=== PATIENT | female | born 1990 | race Caucasian/White ===

== ENCOUNTER 2019-11-18 17:28 | Outpatient (CLI) | payer OTHER, SELFPAY ==
--- NOTE | ~2019-11-18 | XR_ITS ---
EXAMINATION: XR ribs RT 2V w CXR 2V EXAM DATE: 11/18/2019 17:56 INDICATION: Right lateral, posterior rib pain 3-4 weeks. TECHNIQUE: Frontal projection of the upper right ribs, frontal projection of the lower right ribs, ob lique projection of the right ribs, frontal and lateral chest x-ray(s) for interpretation. There is no prior study for comparison. FINDINGS: There are no displaced acute right rib fractures identified. There is no soft tissue abno rmality seen. The lungs are clear. There are no pleural effusions. The cardiomediastinal silhouette is within normal limits. There is no pneumothorax suspected. The bones and soft tissues are unrema rkable. IMPRESSION: Unremarkable chest x-ray, right rib exam. Reviewed, dictated and finalized at location A.
[2019-11-18 17:44] LABS: Basophils Absolute Auto 0.03 K/mm3 (0.00-0.10); Basophils Percent Auto 0.3 % (0.0-1.0); Eosinophils Absolute Auto 0.01 K/mm3 (0.02-0.50); Eosinophils Percent Auto 0.1 % (1.0-6.0); Hematocrit 37.8 % (35.0-49.0); Hemoglobin 12.7 g/dL (12.0-15.0); Immature Granulocyte Absolute 0.03 K/mm3 (0.00-0.00); Immature Granulocyte Percent A 0.3 % (0.0-0.0); Lymphocytes Absolute Auto 1.83 K/mm3 (1.10-4.50); Lymphocytes Percent Auto 19.5 % (18.0-42.0); Mean Corpuscular HGB Conc 33.6 g/dL (32.0-36.0); Mean Corpuscular Hemoglobin 32.6 pg (27.0-31.0); Mean Corpuscular Volume 96.9 fL (78.0-102.0); Mean Platelet Volume 8.8 fl (9.2-11.8); Monocytes Absolute Auto 0.47 K/mm3 (0.10-0.90); Neutrophils Percent Auto 74.8 % (50.0-70.0); Platelet Count Result 351 K/mm3 (150-420); Red Cell Distribution Width 12.4 % (11.6-14.4); White Blood Count 9.4 K/mm3 (4.8-10.8)
== END 2019-11-18 17:29 | disposition home or self-care (01) ==
LOC: CHSLAB 17:30
PROVIDERS: PCP Family Medicine; Visit Provider Family Medicine
DX: K92.1 Melena (principal); R07.89 Other chest pain
CPT/HCPCS: 36415; 71045; 71101; 85025

== ENCOUNTER 2020-08-04 16:09 | Outpatient (CLI) | payer OTHER, SELFPAY ==
[2020-08-04 16:35] LABS: Basophils Absolute Auto 0.04 K/mm3 (0.00-0.10); Basophils Percent Auto 0.4 % (0.0-1.0); Eosinophils Absolute Auto 0.08 K/mm3 (0.02-0.50); Eosinophils Percent Auto 0.8 % (1.0-6.0); Hematocrit 39.8 % (35.0-49.0); Hemoglobin 13.2 g/dL (12.0-15.0); Immature Granulocyte Absolute 0.05 K/mm3 (0.00-0.00); Immature Granulocyte Percent A 0.5 % (0.0-0.0); Lymphocytes Absolute Auto 1.61 K/mm3 (1.10-4.50); Lymphocytes Percent Auto 16.1 % (18.0-42.0); Mean Corpuscular HGB Conc 33.2 g/dL (32.0-36.0); Mean Corpuscular Hemoglobin 32.1 pg (27.0-31.0); Mean Corpuscular Volume 96.8 fL (78.0-102.0); Mean Platelet Volume 8.5 fl (9.2-11.8); Neutrophils Absolute Auto 7.6 K/mm3 (1.7-7.2); Neutrophils Percent Auto 76.2 % (50.0-70.0); Platelet Count Result 402 K/mm3 (150-420); Red Blood Count 4.11 M/mm3 (4.20-5.40); Red Cell Distribution Width 12.3 % (11.6-14.4)
[2020-08-04 16:38] LABS: Add Urine Microscopic? NO; Appearance Urine Clear (Clear); Bilirubin Urine Negative (Negative); Blood Urine Negative (Negative); Color Urine Yellow (Yellow); Glucose Urine UA Negative (Negative); Ketones Urine Negative (Negative); Leukocyte Esterase Ur Negative (Negative); Nitrate Urine Negative (Negative); Protein Urine Negative (Negative); Specific Grav Ur >= 1.030 (1.010-1.020); Urobilinogen Urine 0.2 mg/dL (0.2-1.0)
[2020-08-04 17:26] LABS: SPREG INTERNAL CONTROL Positive; Serum Qual hCG Negative
[2020-08-04 17:42] LABS: Alanine Aminotransferase 14 U/L (14-59); Albumin Level 4.3 g/dL (3.4-5.0); Alkaline Phosphatase 82 U/L (46-116); Amylase 95 U/L (25-115); Anion Gap 13 mmol/L (8-16); Aspartate Amino Transferase 11 U/L (15-37); Bilirubin,Total 0.3 mg/dL (0.00-1.00); Blood Urea Nitrogen 18 mg/dL (7-18); Calcium 9.3 mg/dL (8.5-10.1); Carbon Dioxide 23 mmol/L (21-32); Chloride 101 mmol/L (98-108); Estimated Glomerular Filt Rate > 60; Glucose 97 mg/dL (70-99); Lipase 195 U/L (73-393); Osmolality Calculated 285 mOsm/kg (285-295); Sodium 137 mmol/L (136-145); Thyroid Stimulating Hormone 0.72 uIU/mL (0.36-3.74); Total Protein 7.8 g/dL (6.4-8.2)
[2020-08-08 10:20] LABS: DHEA-Sulfate 205 mcg/dL (23-266)
[2020-08-10 11:06] LABS: FSH 2.9 mIU/mL (***); LH 2.2 mIU/mL (***); Prolactin 8.4 ng/mL (***)
[2020-08-10 17:02] LABS: Estradiol, Ultrasensitive 153 pg/mL
== END 2020-08-04 16:10 | disposition home or self-care (01) ==
LOC: CHSLAB 16:12
PROVIDERS: PCP Family Medicine; Visit Provider Family Medicine
DX: R10.11 Right upper quadrant pain (principal); N91.5 Oligomenorrhea, unspecified; N64.4 Mastodynia
CPT/HCPCS: 36415; 80053; 81003; 82150; 82627; 82670; 83001; 83002; 83690; 84146; 84443; 84703; 85025

== ENCOUNTER 2020-08-10 12:43 | Outpatient (CLI) | payer OTHER, SELFPAY ==
--- NOTE | ~2020-08-10 | US_ITS ---
US abdomen complete DATE: 08/10/2020 13:07 INDICATION: Right upper quadrant abdominal pain TECHNIQUE: Real-time imaging and Doppler analysis of the abdomen COMPARISON: None FINDINGS: No hepatic or pancreatic space-occupying mass lesion is evident. Normal hepatopedal portal venous flow direction. There are multiple shadowing filling defects of the gallbladder consistent with cholelithiasis. No ga llbladder wall thickening is noted. No pericholecystic fluid collection. Negative sonographic Luevano' s sign. The common bile duct measures 4.2 mm, within normal limits. The right kidney measures approximately 10 cm length. The left kidney measures approximately 10.7 cm length. No hydronephrosis of either kidney. Normal caliber of the abdominal aorta. The inferior vena cava is unremarkable. IMPRESSION: Cholelithiasis Reviewed, dictated and finalized at Location A. Reviewed, dictated and finalized at location B. 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
== END 2020-08-10 12:44 | disposition home or self-care (01) ==
LOC: CHSIMG 12:45
PROVIDERS: PCP Family Medicine; Visit Provider Family Medicine
DX: R10.11 Right upper quadrant pain (principal)
CPT/HCPCS: 76700

== ENCOUNTER 2020-08-17 08:06 | Outpatient (CLI) | payer OTHER, SELFPAY ==
--- NOTE | ~2020-08-17 | NM_ITS ---
EXAMINATION: NM hepatobiliary w pharm DATE: 08/17/2020 10:15 INDICATION: Cholelithiasis. Right upper quadrant abdominal pain. Nausea. COMPARISON: Ultrasound 08/10/2020 TECHNIQUE: 6.0 mCi Tc-99m mebrofenin (Choletec) was administered intravenously. Scintigraphic images of the abdomen were obtained for one hour. Then, 1.2 mcg sincalide (Kinevac) IV was administered, an d imaging was continued for 30 minutes. FINDINGS: There is normal clearance of radiotracer from the blood pool. There is homogeneous tracer u ptake by the liver. Activity progresses to the bowel and gallbladder. Gallbladder ejection fraction (GBEF) was 77%. Note that most patients with gallbladder dysfunction have GBEF < 35%, which overlaps with the broad normal range of 10-90%. IMPRESSION: 1. Normal hepatobiliary scintigraphy. Reviewed, dictated and finalized at location A. 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
== END 2020-08-17 08:07 | disposition home or self-care (01) ==
LOC: CHSIMG 08:08
PROVIDERS: PCP Family Medicine; Visit Provider Family Medicine
DX: K80.80 Other cholelithiasis without obstruction (principal)
CPT/HCPCS: 78227; A9537; J2805

== ENCOUNTER 2020-08-30 11:01 | Outpatient (CLI) | payer OTHER, SELFPAY ==
--- NOTE | ~2020-08-30 | XR_ITS ---
EXAMINATION: XR chest 2V EXAM DATE: 08/30/2020 11:20 INDICATION: Chest pain mid sternum to right lower x 1 month, hx asthma. TECHNIQUE: Frontal and lateral projections of the chest obtained and reviewed. Comparison is made to prior examination from 11/18/2019. FINDINGS: The lungs are clear. There are no pleural effusions. The cardiomediastinal silhouette is within normal limits. There is no pneumothorax suspected. The bones and soft tissues are unremarkab le. IMPRESSION: No acute cardiopulmonary findings. Reviewed, dictated and finalized at location A. GER LABOR RELATIONS
== END 2020-08-30 11:02 | disposition home or self-care (01) ==
LOC: CHSIMG 11:03
PROVIDERS: PCP Family Medicine; Visit Provider Family Medicine
DX: R07.89 Other chest pain (principal)
CPT/HCPCS: 71046

== ENCOUNTER 2020-09-17 08:06 | Outpatient (CLI) | payer OTHER, SELFPAY ==
--- NOTE | ~2020-09-17 | CT_ITS ---
EXAMINATION: CT abdomen pelvis w con DATE: 09/17/2020 09:08 INDICATION: Right upper quadrant abdominal pain TECHNIQUE: Computed tomography (CT) of the abdomen and pelvis was performed with 100 cc Omnipaque 350 intravenous contrast. The dose-length product was 311.68 mGy-cm. Automated exposure control and iter ative reconstruction technique were employed. COMPARISON: Nuclear hepatobiliary scan dated 08/17/2020 and ultrasound dated 08/10/2020 FINDINGS: Lung bases are unremarkable. Heart size is normal. No significant pleural or pericardial ef fusion. There is mild atherosclerosis without aneurysm. No lymphadenopathy. Fatty infiltration of the liver. Gallbladder is present. No radiopaque stones. The spleen, pancreas, adrenal glands and kidneys are unremarkable. Nonobstructive bowel gas pattern. No biliary dilatation. No free air or free fluid. Normal appendix. No abnormal pelvic masses or fluid collections. No acute osseous abnormality. IMPRESSION: 1. No acute abdominal abnormality. No findings to account for patient's symptoms. Reviewed, dictated and finalized at location B. 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 No acute abdominal abnormality. No findings to account for patient's symptom s.
== END 2020-09-17 08:07 | disposition home or self-care (01) ==
LOC: CHSIMG 08:09
PROVIDERS: PCP Family Medicine; Visit Provider Family Medicine
DX: R10.11 Right upper quadrant pain (principal)
CPT/HCPCS: 74177; Q9967

== ENCOUNTER 2021-05-08 16:28 | Emergency (ER) | payer OTHER, SELFPAY ==
--- NOTE | 2021-05-08 16:57 | ED.SKABFB ---
HPI - Skin/Abscess/Foreign Bdy General Chief complaint: Skin/Abscess/Foreign Body Stated complaint: spider bit Source: patient Mode of arrival: ambulatory Limitations: no limitations History of Present Illness HPI narrative: Pt presents with wound that started yesterday. SHe isnt sure what happened, but she was worried about a spider bite. No fevers, no unusual nausea, today fluid filled blister is present. complaint: abscess/boil Onset (ago): day(s) (1) Pain Consistency: now resolved (no painful) Relieving factors: none Exacerbating factors: none Associated symptoms: denies other symptoms Treatments prior to arrival: none Related Data Home Medications Medication Instructions Recorded Confirmed buspirone 5 mg PO DAILY 05/08/21 05/08/21 dextroamphetamine-amphetamine 20 mg PO DAILY 05/08/21 05/08/21 escitalopram oxalate 5 mg PO DAILY 05/08/21 05/08/21 omeprazole 20 mg PO DAILY 05/08/21 05/08/21 Allergies Allergy/AdvReac Type Severity Reaction Status Date / Time No Known Allergies Allergy Unverified 05/08/21 17:03 Review of Systems Review of Systems: All systems reviewed & are unremarkable except as noted in HPI and below PMFSH Past Medical History Medical History (Updated 05/08/21 @ 17:03 by Terra Conteh MD) Arthritis Asthma HTN (hypertension) SVT (supraventricular tachycardia) Surgical History Surgical History (Updated 05/08/21 @ 17:00 by Terra Conteh MD) H/O laparoscopy History of dilation and curettage Social History Social History (Updated 05/08/21 @ 17:00 by Terra Conteh MD) Smoking status: Never smoker Alcohol intake: never Substance use: never Living arrangements: with family Exam Const: General: no acute distress and alert Orientation/consciousness: patient oriented x3 HENMT: Head: normal to inspection Eyes: Conjunctivae: conjunctivae normal Neck: Neck: normal visual inspection Chest: Chest palpation & inspection: normal inspection of the chest Resp: Effort & Inspection: normal respiratory effort Auscultation: clear to auscultation bilaterally Cardio: Rate: regular rate Rhythm: regular rhythm GI: Auscultation: normal bowel sounds : General: Yes no CVA tenderness Skin: General skin exam: normal color Other: small quarter size blister on right forearm, serous fluid filled. Blister popped and fluid cultured. Base of pink vital skin, no significant depth Course Vital Signs Vital signs: Vital Signs Temperature 36.7 C 05/08/21 17:00 Pulse Rate 104 H 05/08/21 17:00 Respiratory Rate 20 05/08/21 17:00 Blood Pressure 133/95 H 05/08/21 17:00 Pulse Oximetry 100 05/08/21 17:00 Temperature 36.7 C 05/08/21 17:00 Pulse Rate 104 H 05/08/21 17:00 Respiratory Rate 20 05/08/21 17:00 Blood Pressure 133/95 H 05/08/21 17:00 Pulse Oximetry 100 05/08/21 17:00 Discharge Plan Discharge Clinical Impression: Blister Patient Disposition: Home, Self-Care Condition: Stable Instructions: Antibiotic Form, Blister (ED) Prescriptions: No Action buspirone 5 mg tablet 5 mg PO DAILY RF: 0 dextroamphetamine-amphetamine 20 mg tablet 20 mg PO DAILY RF: 0 omeprazole 20 mg capsule,delayed release(DR/EC) 20 mg PO DAILY RF: 0 escitalopram oxalate 5 mg tablet 5 mg PO DAILY RF: 0 Follow-up/Referrals: Denny Ruggiero MD [Primary Care Provider] - Time of Disposition: :03
[2021-05-08 17:00] VITALS: BP 133/95; PULSE 104; RESP 20; TEMP 36.7; O2SAT 100
== END 2021-05-08 17:10 | disposition home or self-care (01) ==
PROVIDERS: Emergency Provider Emergency Medicine; PCP Family Medicine
DX: S50.821A Blister (nonthermal) of right forearm, initial encounter (principal); J45.909 Unspecified asthma, uncomplicated; I10 Essential (primary) hypertension; M19.90 Unspecified osteoarthritis, unspecified site
CPT/HCPCS: 87070; 87205; 99282; 99283

== ENCOUNTER 2021-08-11 16:42 | Outpatient (CLI) | payer OTHER, SELFPAY ==
[2021-08-11 19:12] LABS: SARS-CoV-2 Ag Negative (Negative)
== END 2021-08-11 16:43 | disposition home or self-care (01) ==
LOC: CHSLAB 16:45
PROVIDERS: PCP Family Medicine; Visit Provider Family Medicine
DX: R05.9 Cough, unspecified (principal); J02.9 Acute pharyngitis, unspecified; Z20.822 Contact with and (suspected) exposure to COVID-19
CPT/HCPCS: 87081; 87426; 87880; C9803

== ENCOUNTER 2021-08-26 10:57 | Outpatient (CLI) | payer OTHER, SELFPAY ==
[2021-08-26 11:58] LABS: SARS-CoV-2 Ag Negative (Negative)
[2021-08-27 20:23] LABS: SARS-CoV-2 RNA PCR Negative
== END 2021-08-26 10:58 | disposition home or self-care (01) ==
LOC: CHSLAB 10:58
PROVIDERS: PCP Family Medicine; Visit Provider Family Medicine
DX: R05.9 Cough, unspecified (principal); R51.9 Headache, unspecified; Z20.822 Contact with and (suspected) exposure to COVID-19
CPT/HCPCS: 87426; C9803; U0003; U0005

== ENCOUNTER 2021-09-30 09:23 | Outpatient (CLI) | payer OTHER, SELFPAY ==
--- NOTE | ~2021-09-30 | XR_ITS ---
EXAMINATION: XR chest 2V 09/30/2021 11:00 INDICATION: Shortness of breath. Covid. PROCEDURE: 2 view chest COMPARISON: Comparison to multiple prior studies sequentially, with oldest reviewed study dated 12/18. FINDINGS: The lungs are clear. The cardiomediastinal silhouette is within normal limits. There are no pleural effusions. There is no pneumothorax suspected. IMPRESSION: 1: NO ACUTE CARDIOPULMONARY DISEASE. Reviewed, dictated and finalized at location B. 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
== END 2021-09-30 09:24 | disposition home or self-care (01) ==
LOC: CHSCARD 09:24
PROVIDERS: PCP Family Medicine; Visit Provider Family Medicine
DX: R05.9 Cough, unspecified (principal); B02.9 Zoster without complications
CPT/HCPCS: 71046; 94060; 94726; 94729

== ENCOUNTER 2022-07-24 09:04 | Outpatient (CLI) | payer OTHER, SELFPAY ==
--- NOTE | ~2022-07-24 | XR_ITS ---
Cervical Spine: AP, lateral, open-mouth views Clinical History: Cervicalgia Findings: There is mild reversal normal cervical lordosis. The vertebral bodies and posterior elemen ts appear intact. The intervertebral disc spaces are well maintained. Pre-vertebral soft tissues are unremarkable. Impression: Mild reversal of the normal cervical lordosis. No other significant findings. Reviewed, dictated and finalized at location [] SCENER Impression: Mild reversal of the normal cervical lordosis. No other significant findings.
== END 2022-07-24 09:05 | disposition home or self-care (01) ==
LOC: CHSIMG 09:05
PROVIDERS: PCP Family Medicine; Visit Provider Family Medicine
DX: M54.2 Cervicalgia (principal); M53.82 Other specified dorsopathies, cervical region
CPT/HCPCS: 72040

== ENCOUNTER 2022-11-08 14:38 | Outpatient (CLI) | payer OTHER, SELFPAY ==
--- NOTE | ~2022-11-08 | XR_ITS ---
EXAMINATION: XR abdomen obstructive series DATE: 11/08/2022 15:45 INDICATION: Epigastric pain TECHNIQUE: Upright and supine views of the abdomen were obtained. COMPARISON: None. FINDINGS: No free intraperitoneal gas or evidence of bowel obstruction. The bowel gas pattern is norm al. The visualized lung bases are clear. Phleboliths are noted in the pelvis. IMPRESSION: 1. Nonobstructive bowel gas pattern. Reviewed, dictated and finalized at location L.
[2022-11-08 15:13] LABS: Basophils Absolute Auto 0.04 K/mm3 (0.00-0.10); Basophils Percent Auto 0.5 % (0.0-1.0); Eosinophils Absolute Auto 0.02 K/mm3 (0.02-0.50); Eosinophils Percent Auto 0.2 % (1.0-6.0); Hematocrit 40.3 % (35.0-49.0); Hemoglobin 13.4 g/dL (12.0-15.0); Immature Granulocyte Absolute 0.04 K/mm3 (0.00-0.00); Immature Granulocyte Percent A 0.5 % (0.0-0.0); Lymphocytes Absolute Auto 1.96 K/mm3 (1.10-4.50); Lymphocytes Percent Auto 24.4 % (18.0-42.0); Mean Corpuscular HGB Conc 33.3 g/dL (32.0-36.0); Mean Corpuscular Hemoglobin 32.1 pg (27.0-31.0); Mean Corpuscular Volume 96.6 fL (78.0-102.0); Mean Platelet Volume 8.7 fl (9.2-11.8); Monocytes Absolute Auto 0.47 K/mm3 (0.10-0.90); Monocytes Percent Auto 5.9 % (2.0-11.0); Neutrophils Absolute Auto 5.5 K/mm3 (1.7-7.2); Neutrophils Percent Auto 68.5 % (50.0-70.0); Platelet Count Result 386 K/mm3 (150-420); Red Blood Count 4.17 M/mm3 (4.20-5.40); Red Cell Distribution Width 12.6 % (11.6-14.4)
[2022-11-08 15:45] LABS: Alanine Aminotransferase 29 U/L (14-59); Albumin Level 4.4 g/dL (3.4-5.0); Alkaline Phosphatase 104 U/L (46-116); Amylase 85 U/L (25-115); Anion Gap 11 mmol/L (8-16); Aspartate Amino Transferase 20 U/L (15-37); Bilirubin,Total 0.4 mg/dL (0.00-1.00); Blood Urea Nitrogen 14 mg/dL (7-18); Calcium 9.3 mg/dL (8.5-10.1); Carbon Dioxide 27 mmol/L (21-32); Chloride 102 mmol/L (98-108); Estimated Glomerular Filt Rate > 60; Glucose 100 mg/dL (70-99); Lipase 55 U/L (16-77); Osmolality Calculated 290 mOsm/kg (285-295); Potassium 3.8 mmol/L (3.5-5.1); Sodium 140 mmol/L (136-145); Thyroid Stimulating Hormone 0.99 uIU/mL (0.36-3.74); Total Protein 7.7 g/dL (6.4-8.2)
[2022-11-08 15:50] LABS: Appearance Urine Clear (Clear); Bilirubin Urine Negative (Negative); Blood Urine 1+ (Negative); Color Urine Light Yellow (Yellow); Glucose Urine UA Negative (Negative); Ketones Urine Negative (Negative); Leukocyte Esterase Ur Negative LEU/UL (Negative); Nitrate Urine Negative (Negative); Protein Urine Negative (Negative); Urobilinogen Urine 0.2 mg/dL (0.2-1.0); pH Urine 5.5 (5.0-8.0)
[2022-11-08 15:56] LABS: Add Urine Microscopic? YES; Bacteria Urine Trace /hpf; Squamous Epithelial Cell Urine Few /hpf (Few); WBC Urine None seen /hpf (0-3)
== END 2022-11-08 14:39 | disposition home or self-care (01) ==
PROVIDERS: PCP Family Medicine; Visit Provider Family Medicine
DX: R10.84 Generalized abdominal pain (principal)
CPT/HCPCS: 36415; 74019; 80053; 81001; 82150; 83690; 84443; 85025

== ENCOUNTER 2022-11-15 09:04 | Outpatient (CLI) | payer OTHER, SELFPAY ==
--- NOTE | ~2022-11-15 | US_ITS ---
Abdominal Sonogram: Real-time sonographic imaging of the abdomen was performed. Clinical History: Abdominal pain Findings: The liver appears normal with no evidence of mass lesion or bile duct dilatation. Main por odilia vein demonstrates normal direction of flow. The spleen is normal in size without evidence of foca l lesion. The gallbladder is well distended, and contains multiple shadowing gallstones. No gallblad barbara wall thickening. The common bile duct measures 3 mm. The visualized pancreas, aorta, and IVC are unremarkable. The right kidney measures 10.4 cm in length and the left kidney measures 10.6 cm. Th ere is no hydronephrosis or renal calculus. Impression: Cholelithiasis. Reviewed, dictated and finalized at location M. Impression: Cholelithiasis.
== END 2022-11-15 09:05 | disposition home or self-care (01) ==
LOC: CHSIMG 09:06
PROVIDERS: PCP Family Medicine; Visit Provider Family Medicine
DX: R10.84 Generalized abdominal pain (principal); K80.20 Calculus of gallbladder without cholecystitis without obstruction
CPT/HCPCS: 76700

== ENCOUNTER 2023-01-30 14:44 | Outpatient (CLI) | payer OTHER, SELFPAY ==
--- NOTE | ~2023-01-30 | US_ITS ---
EXAMINATION: US pelvic complete w TV DATE: 01/30/2023 15:35 INDICATION: Abnormal uterine bleeding TECHNIQUE: Multiple transabdominal and endovaginal sonographic images of the pelvis were obtained. COMPARISON: 820 during ; CT, 09/17/2020 FINDINGS: The uterus measures 6.9 x 3.5 x 4.0 cm. The endometrial complex measures 2 mm. There are sm all, chronic, and stable hyperechoic foci adjacent to the endometrium. The myometrium is somewhat het erogeneous in appearance with multiple subtle hyperechoic foci. The right ovary measures 3.6 x 1.7 x 1.4 cm. The left ovary measures 3.0 x 1.1 x 1.1 cm. There is normal vascular flow in the ovaries. The re is no free fluid in the pelvis. IMPRESSION: 1. Heterogeneous appearance of the myometrium which could reflect adenomyosis. Reviewed, dictated and finalized at location []
== END 2023-01-30 14:45 | disposition home or self-care (01) ==
PROVIDERS: PCP Family Medicine; Visit Provider Advanced Practice Midwife
DX: N94.11 Superficial (introital) dyspareunia (principal); N93.8 Other specified abnormal uterine and vaginal bleeding
CPT/HCPCS: 76830; 76856

== ENCOUNTER 2023-03-19 11:17 | Outpatient (CLI) | payer OTHER, SELFPAY ==
--- NOTE | ~2023-03-19 | NM_ITS ---
EXAMINATION: NM hepatobiliary w pharm DATE: 03/19/2023 13:28 INDICATION: Right upper quadrant abdominal pain. COMPARISON: Ultrasound 11/15/2022 TECHNIQUE: 5.16 mCi Tc-99m mebrofenin (Choletec) was administered intravenously. Scintigraphic image s of the abdomen were obtained for one hour. Then, 1.3 mcg sincalide (Kinevac) IV was administered, a nd imaging was continued for 30 minutes. FINDINGS: There is normal clearance of radiotracer from the blood pool. There is homogeneous tracer u ptake by the liver. Activity progresses to the bowel and gallbladder. Gallbladder ejection fraction (GBEF) was 75%. Note that most patients with gallbladder dysfunction have GBEF < 35%, which overlaps with the broad normal range of 10-90%. IMPRESSION: 1. Normal hepatobiliary scintigraphy. Reviewed, dictated and finalized at location A.
== END 2023-03-19 11:18 | disposition home or self-care (01) ==
LOC: CHSIMG 11:18
PROVIDERS: PCP Family Medicine; Visit Provider Family Medicine
DX: R10.11 Right upper quadrant pain (principal)
CPT/HCPCS: 78227; A9537; J2805

== ENCOUNTER 2023-06-04 13:48 | Outpatient (CLI) | payer OTHER, SELFPAY ==
--- NOTE | 2023-06-04 13:56 | ECHO_ITS ---
Patient Info Name: Yue Monsivais Age: 33 years : 1990 Gender: Female Ht: 60 in Wt: 140 lbs BSA: 1.66 m2 HR: 73 bpm BP: 160 / 89 mmHg Heart Rhythm: Sinus Rhythm Technical Quality: Good Exam Date: 06/04/2023 1:56 PM Exam Location: [facility] Patient Status: Outpatient Admit Date: 06/04/2023 Staff Ordering Physician: Denny Ruggiero MD Corporate Attorney: Kobi Mena RDCS Attending Provider: Denny Ruggiero MD Referring Physician: Monik WHALEY; Exam Type: CA echo doppler color flow Study Info Indications - ABN EKG/palpatation Complete two-dimensional, color flow and Doppler transthoracic echocardiogram is performed. Summary 1. Complete two-dimensional, color flow and Doppler transthoracic echocardiogram is performed. 2. Left ventricular chamber dimension is normal. 3. Left ventricular systolic function is normal, estimated at 60-65%. 4. The left ventricular diastolic function is normal. 5. E/e' 9 is minimally elevated. 6. No pulmonary hypertension, estimated pulmonary arterial systolic pressure is 13 mmHg. Left Ventricle E/e' 9 is minimally elevated. Left ventricular chamber dimension is normal. Left ventricular systolic function is normal, estimated at 60-65%. The left ventricular diastolic function is normal. Right Ventricle Right ventricular systolic function is normal and with normal TAPSE 2.4 cm. Right ventricular chamber dimension is normal. Left Atria Left atrial chamber dimension is normal. Right Atria Right atrial chamber dimension is normal. Aortic Valve The aortic valve is trileaflet. There is no aortic valve stenosis. There is no aortic valve regurgitation. Pulmonic Valve There is no pulmonic regurgitation. Mitral Valve There is no mitral valve stenosis. There is no mitral valve regurgitation. Tricuspid Valve There is no tricuspid valve regurgitation. No pulmonary hypertension, estimated pulmonary arterial systolic pressure is 13 mmHg. Pericardium/Pleural There is no pericardial effusion. Inferior Vena Cava Normal inferior vena cava with >50% collapse upon inspiration consistent with normal right atrial pressure, 5 mmHg. Aorta The aortic root size at the sinus of Valsalva is normal. Left Ventricular Outflow Tract Name Value Normal LVOT 2D LVOT Diameter 2.0 cm LVOT Doppler LVOT Peak Velocity 83 cm/s LVOT Peak Gradient 2 mmHg LVOT Mean Gradient 1 mmHg LVOT VTI 18 cm LVOT VTI/AV VTI Ratio 0.5 LVOT Stroke Volume 59 ml Pulmonic Valve Name Value Normal PV Doppler PV Peak Velocity 102 cm/s PV Peak Gradient 4 mmHg Mitral Valve Name Value Normal
== END 2023-06-04 13:49 | disposition home or self-care (01) ==
PROVIDERS: PCP Family Medicine; Visit Provider Family Medicine
DX: K94.31 Esophagostomy hemorrhage (principal); R00.2 Palpitations
CPT/HCPCS: 93306

== ENCOUNTER 2023-07-11 08:09 | Outpatient (CLI) | payer OTHER, SELFPAY ==
--- NOTE | 2023-07-23 20:16 | WPDHOMESLEEP ---
Sleep Study - Home Unattended Date of Study: 07/11/23 Ordering Provider: Edmundo Hall DO Interpreting Provider: Sia Minor DO Home Sleep Study Type: Watch PAT Height: 1.52 m Weight: 62.142 kg Body Mass Index: 26.7 Neck Circumference (inches): 14 [place]: 12 Reason for Sleep Study Snoring, daytime hypersomnia Sleep History The patient is a 33-year-old female with ADD, GERD, hypertension, depression and history of tobacco use that had a sleep study ordered by her client retention specialist for evaluation of sleep apnea. The patient frequently awakens at night with belching. She occasionally snores and is occasionally loud enough that others complain. He frequently has trouble sleeping when she has a cold. She occasionally wakes up gasping for air throughout the night. She rarely has breathing problems at night observed by herself or others. She occasionally sweats excessively at night. She frequently has heart palpitations or irregular heartbeats during the night. She frequently falls asleep during the day but never while driving. She occasionally experiences loss of muscle tone when extremely emotional. She denies sleep paralysis. She occasionally experiences vivid dreamlike scenes upon awakening or falling asleep. She occasionally feels afraid of going to sleep. She occasionally has nightmares. She frequently remembers her dreams. She frequently has thoughts racing through her mind. She frequently feels sad, depressed and anxious. She occasionally has muscular tension. She rarely notices parts of her body jerk. She occasionally kicks during the night. She occasionally has crawling and aching feelings in her legs and frequently has leg pain during the night. She occasionally grinds her teeth during sleep and occasionally awakens with morning jaw pain. She is constantly bothered by pain during the day and occasionally awakened by pain during the night. She frequently wakes up feeling stiff in the morning. She occasionally wakes up with sore or achy muscles. She occasionally wakes up with pain in the neck, spine or other joints. She goes to bed on weekdays any time between 10:00 p.m. to midnight and between 11:00 p.m. to been night on the weekends. It can take her 30 minutes up to several hours to fall asleep. She wakes up 1-6 times throughout the night to urinate and get a drink. It takes about 1 hour for her to fall back asleep. She wakes up between 7-10 a.m. on weekdays and between 9-10 a.m. on the weekends. The amount of sleep she gets per night is variable. She will stay in bed up to 30 minutes after waking up in the morning.She currently lives with her 2 children. She denies consuming any caffeinated beverages within 2 hours of bedtime. She denies engaging in physical exercise before bedtime. She will read watch television before falling asleep. She will occasionally take naps in the afternoon or the evening but they are not refreshing. She consumes 4 cups of caffeinated beverage per day. She quit smoking cigarettes 10 years ago. She denies alcohol and recreational drug use. [facility], [facility] Past Medical History Medical History Arthritis Asthma HTN (hypertension) SVT (supraventricular tachycardia) Surgical History Surgical History H/O laparoscopy History of dilation and curettage Social History Social History Smoking status: Never smoker Tobacco type: e-cigarettes/vaping Alcohol intake: never Substance use: never Living arrangements: with family Medications Home Medications Medication Instructions Recorded Confirmed Type dextroamphetamine-amphetamine 20 20 mg PO DAILY 05/08/21 06/14/23 History mg tablet escitalopram oxalate 5 mg tablet 5 mg PO DAILY 05/08/21 06/14/23 History omeprazole 20 mg capsule,delayed 20 mg PO BASHIR
[2023-07-23 20:17] VITALS: BMI 26.7
== END 2023-07-13 10:17 | disposition home or self-care (01) ==
LOC: ANHCSM 08:19
PROVIDERS: PCP Family Medicine; Visit Provider Internal Medicine Cardiovascular Disease
DX: G47.10 Hypersomnia, unspecified (principal)
CPT/HCPCS: 95800

== ENCOUNTER 2023-07-26 13:52 | Outpatient (CLI) | payer OTHER, SELFPAY ==
[2023-07-31 14:46] LABS: Metanephrine, Free 91 pg/mL (<=57); Normetanephrine, Free 247 pg/mL (<=148); Total, Free (MN + NMN) 338 pg/mL (<=205)
== END 2023-07-26 13:53 | disposition home or self-care (01) ==
LOC: CHSLAB 13:54
PROVIDERS: PCP Family Medicine; Visit Provider Internal Medicine Cardiovascular Disease
DX: R00.0 Tachycardia, unspecified (principal)
CPT/HCPCS: 36415; 83835

== ENCOUNTER 2023-08-16 09:45 | Outpatient (CLI) | payer OTHER, SELFPAY ==
--- NOTE | ~2023-08-16 | MR_ITS ---
EXAMINATION: MR abdomen wo/w con DATE: 08/16/2023 10:32 INDICATION: Pheochromocytoma. TECHNIQUE: Magnetic resonance imaging (MRI) of the abdomen was performed without and with 12 mL Multi Kyle intravenous contrast. COMPARISON: None. FINDINGS: The liver is normal. There are gallstones in the gallbladder, which is normal in size. The spleen, pa ncreas, adrenal glands, and kidneys are normal. There are no dilated loops of bowel. There is physiol ogic fluid in the pelvis. There are no pathologically enlarged lymph nodes. IMPRESSION: 1. Normal adrenal glands. 2. Cholelithiasis. Reviewed, dictated and finalized at location A. 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
== END 2023-08-16 09:46 | disposition home or self-care (01) ==
LOC: ANHIMG 09:46
PROVIDERS: PCP Family Medicine; Visit Provider Internal Medicine Cardiovascular Disease
DX: D35.00 Benign neoplasm of unspecified adrenal gland (principal); K80.20 Calculus of gallbladder without cholecystitis without obstruction
CPT/HCPCS: 74183; A9577

== ENCOUNTER 2023-08-31 11:24 | Outpatient (CLI) | payer OTHER, SELFPAY ==
[2023-08-31 12:08] LABS: SARS-CoV-2 RNA PCR Negative (Negative)
[2023-08-31 12:10] LABS: Influenza A QL RT-PCR Negative (Negative); Influenza B QL RT-PCR Negative (Negative)
== END 2023-08-31 11:25 | disposition home or self-care (01) ==
LOC: CHSLAB 11:25
PROVIDERS: PCP Family Medicine; Visit Provider Family Medicine
DX: J06.9 Acute upper respiratory infection, unspecified (principal)
CPT/HCPCS: 87636

== ENCOUNTER 2024-04-03 14:11 | Outpatient (CLI) | payer OTHER, SELFPAY ==
[2024-04-03 14:35] LABS: Add Urine Microscopic? NO; Appearance Urine Clear (Clear); Basophils Absolute Auto 0.04 K/mm3 (0.00-0.10); Basophils Percent Auto 0.5 % (0.0-1.0); Bilirubin Urine Negative (Negative); Blood Urine Trace-intact (Negative); Color Urine Yellow (Yellow); Eosinophils Absolute Auto 0.05 K/mm3 (0.02-0.50); Eosinophils Percent Auto 0.6 % (1.0-6.0); Glucose Urine UA Negative (Negative); Hematocrit 37.7 % (35.0-49.0); Hemoglobin 12.9 g/dL (12.0-15.0); Immature Granulocyte Absolute 0.03 K/mm3 (0.00-0.00); Immature Granulocyte Percent A 0.4 % (0.0-0.0); Ketones Urine Negative (Negative); Leukocyte Esterase Ur Negative (Negative); Lymphocytes Absolute Auto 1.79 K/mm3 (1.10-4.50); Lymphocytes Percent Auto 22.1 % (18.0-42.0); Mean Corpuscular HGB Conc 34.2 g/dL (32-36); Mean Corpuscular Hemoglobin 32.7 pg (27.0-31.0); Mean Corpuscular Volume 95.4 fL (78.0-102.0); Mean Platelet Volume 8.9 fl (9.2-11.8); Monocytes Absolute Auto 0.43 K/mm3 (0.10-0.90); Monocytes Percent Auto 5.3 % (2.0-11.0); Neutrophils Absolute Auto 5.76 K/mm3 (1.70-7.20); Neutrophils Percent Auto 71.1 % (50.0-70.0); Nitrate Urine Negative (Negative); Platelet Count Result 371 K/mm3 (150-420); Protein Urine Negative (Negative); Red Blood Count 3.95 M/mm3 (4.20-5.40); Specific Grav Ur >= 1.030 (1.010-1.020); Urobilinogen Urine 0.2 mg/dL (0.2-1.0); White Blood Count 8.1 K/mm3 (4.8-10.8)
[2024-04-03 15:12] LABS: Alanine Aminotransferase 31 U/L (14-59); Alkaline Phosphatase 83 U/L (46-116); Amylase 76 U/L (25-115); Anion Gap 9 mmol/L (4-12); Aspartate Amino Transferase 17 U/L (15-37); Bilirubin,Total 0.2 mg/dL (0.00-1.00); Blood Urea Nitrogen 12 mg/dL (7-18); Calcium 9.1 mg/dL (8.5-10.1); Carbon Dioxide 27 mmol/L (21-32); Chloride 103 mmol/L (98-108); Estimated Glomerular Filt Rate > 60; Glucose 109 mg/dL (70-99); Lipase 73 U/L (16-77); Magnesium 1.8 mg/dL (1.8-2.4); Osmolality Calculated 288 mOsm/kg (285-295); Potassium 3.6 mmol/L (3.5-5.1); Sodium 139 mmol/L (136-145); Total Protein 6.9 g/dL (6.4-8.2)
== END 2024-04-03 14:12 | disposition home or self-care (01) ==
LOC: CHSLAB 14:14
PROVIDERS: PCP Family Medicine; Visit Provider Family Medicine
DX: R19.7 Diarrhea, unspecified (principal); R10.9 Unspecified abdominal pain; E87.6 Hypokalemia
CPT/HCPCS: 36415; 80053; 81003; 82150; 83690; 83735; 85025

== ENCOUNTER 2024-04-07 11:44 | Outpatient (NON) | payer OTHER, SELFPAY ==
[2024-04-07 13:32] LABS: Toxigenic C. Diff NEGATIVE (NEGATIVE)
[2024-04-07 13:32] LABS: Toxigenic C. Diff NEGATIVE (NEGATIVE)
== END 2024-04-07 11:45 | disposition home or self-care (01) ==
LOC: CHSLAB 11:46
PROVIDERS: Visit Provider Family Medicine
DX: R19.7 Diarrhea, unspecified (principal); R10.9 Unspecified abdominal pain; E87.6 Hypokalemia
CPT/HCPCS: 87045; 87272; 87427; 87449; 87493; 89055